=== PATIENT | female | born 1985 | race African-American/Black ===

== ENCOUNTER 2019-06-19 09:24 | Emergency (ER) | payer MEDICAID ==
[~2019-06-19] VITALS: Ht 170.2 cm; Wt 112.0 kg
--- NOTE | 2019-06-19 09:25 | NUR ---
PT BIBRA 89 FROM HOME C/O SEIZURE EPISODE ABOUT 5 MINS PER REPORT, PT AAOX4, NOT IN RESPIRATORY DISTRESS, V/S STABLE, KEPT RESTED AND COMFORTABLE, WILL CONTINUE TO MONITOR.
--- NOTE | 2019-06-19 09:25 | NUR ---
SEIZURE PRECAUTION INITIATED.
--- NOTE | 2019-06-19 09:30 | NUR ---
SEEN AND EXAMINED BY .
--- NOTE | 2019-06-19 09:40 | NUR ---
IV LINE ESTABLISHED, BLOOD DRAWN AND SENT TO LAB.
[2019-06-19 09:45] LABS: BASOPHILS % (AUTO) 0.6 % (0.0-2.0); HEMATOCRIT 35 % (33-45); HEMOGLOBIN 11.1 g/dL (11.5-14.8); LYMPHOCYTES % (AUTO) 31.4 % (20.0-44.0); MEAN CORPUSCULAR HGB CONC 32 g/dl (31.0-36.0); MEAN CORPUSCULAR VOLUME 88 fL (82-100); MONOCYTES # (AUTO) 0.3 /CMM (0.1-1.30); MONOCYTES % (AUTO) 4.2 % (2.0-12.0); NEUTROPHILS # (AUTO) 3.9 /CMM (1.8-8.9); NEUTROPHILS % (AUTO) 62.8 % (43.0-81.0); PLATELET COUNT (AUTO) 274 /CMM (150-450); RED BLOOD CELL COUNT(AUTO) 3.94 MIL/uL (4.0-5.2); WHITE BLOOD COUNT (AUTO) 6.2 K/uL (4.3-11.0)
[2019-06-19] MEDS ORDERED: ACETAMINOPHEN ES 500 MG TABLET ONE (09:46)
[2019-06-19] MEDS ORDERED: ACETAMINOPHEN ES 500 MG TABLET PO ONE (10:00)
[2019-06-19 10:05] LABS: BILIRUBIN,TOTAL 0.2 mg/dL (0.2-1.0)
[2019-06-19] MEDS ORDERED: TOPI100T38 PO (10:10)
[2019-06-19] MEDS ORDERED: MIRT30TA7 PO (10:10)
[2019-06-19] MEDS ORDERED: PHEN100C4 PO (10:10)
[2019-06-19] MEDS ORDERED: BUPR-319 PO (10:10)
[2019-06-19] MEDS ORDERED: DULO20CA PO (10:10)
[2019-06-19] MEDS ORDERED: LURA80TA PO (10:10)
[2019-06-19] MEDS ORDERED: CLON2TAB11 PO (10:10)
[2019-06-19] MEDS ORDERED: BUSP30TA2 PO (10:10)
[2019-06-19] MEDS ORDERED: ALPR2TAB7 PO (10:10)
[2019-06-19] MEDS ORDERED: LEVE100023 PO (10:10)
[2019-06-19 10:17] LABS: BILIRUBIN,DIRECT 0.1 mg/dL (0.0-0.2); CALCIUM, SERUM 8.3 mg/dL (8.5-10.1); CREATININE 0.9 mg/dL (0.6-1.3); TOTAL PROTEIN, SERUM 7.2 g/dL (6.4-8.2)
[2019-06-19] MEDS ORDERED: LEVETIRACETAM (500MG) 1,000 MG in IV NS 0.9% 100 ML IV SCH (10:30)
[2019-06-19] MEDS ORDERED: PHENYTOIN EXTENDED RELEASE 100 MG CAPSULE PO ONE ×2 (11:30→11:46)
--- NOTE | 2019-06-19 12:50 | NUR ---
IV removed. Catheter intact and site benign. Pressure and 4x4 applied to site. No bleeding noted.Patient discharged to home in stable condition. Written and verbal after care instructions given. Patient verbalizes understanding of instruction.
[2019-06-19 12:51] VITALS: BP 128/84
== END 2019-06-19 12:51 | disposition home or self-care (01) ==
LOC: ER 09:32
DX: G40.909 Epilepsy, unspecified, not intractable, without status epilepticus (principal); R51 Headache; Z79.899 Other long term (current) drug therapy
CPT/HCPCS: 36415; 80048; 80076; 80185; 84702; 85025; 93005; 96365; 99284; J1953; J7030